=== PATIENT | female | born 1995 | race Two or more races ===

== ENCOUNTER 2024-11-17 10:30 | Day surgery (SDC) | payer OTHER ==
[2024-11-17] MEDS ORDERED: MIDAZOLAM HCL 2 MG/2 ML VIAL IV ONE (11:45)
[2024-11-17] MEDS ORDERED: DIPHENHYDRAMINE HCL 50 MG/ML VIAL 1ML IV ONE ×2 (11:45)
[2024-11-17] MEDS ORDERED: fentaNYL CITRATE 50 MCG/ML AMPUL IV PUSH ONE (11:45)
== END 2024-11-17 11:30 | disposition home or self-care (01) ==
LOC: AMB-ENDOS 10:30
PROVIDERS: ATTEND Internal Medicine
DX: R19.4 Change in bowel habit (principal); K21.9 Gastro-esophageal reflux disease without esophagitis; R10.13 Epigastric pain